=== PATIENT | female | born 1950 | race Caucasian/White ===

== ENCOUNTER → 2019-10-27 | Outpatient (CLI) | payer MEDICARE | LOC: M LABSMTC 13:42 | PROVIDERS: ATTEND Family Medicine | DX: Z11.59 Encounter for screening for other viral diseases (principal) | CPT/HCPCS: C9803; U0003 ==

== ENCOUNTER → 2020-05-20 | Outpatient (CLI) | payer SELFPAY | LOC: M LABSMTC 14:16 | PROVIDERS: ATTEND Pediatrics | DX: Z20.828 Contact with and (suspected) exposure to other viral communicable diseases (principal) ==

== ENCOUNTER 2020-08-25 06:02 | Emergency (ER) | payer MEDICARE, BC ==
[~2020-08-25] VITALS: Ht 177.8 cm; Wt 113.4 kg
[2020-08-25] MEDS ORDERED: SOTA160T PO (06:24)
[2020-08-25] MEDS ORDERED: GLUC1TAB58 PO (06:24)
[2020-08-25] MEDS ORDERED: FISH1000 PO (06:24)
[2020-08-25] MEDS ORDERED: CENTCHW3 PO (06:24)
[2020-08-25] MEDS ORDERED: ELIQ5TAB PO (06:24)
[2020-08-25] MEDS ORDERED: CBD OIL PO (06:24)
[2020-08-25] MEDS ORDERED: ACET650T15 PO (06:24)
[2020-08-25] MEDS ORDERED: NAPR-849 PO (06:24)
[2020-08-25] MEDS ORDERED: TORS20TA2 PO (06:24)
[2020-08-25] MEDS ORDERED: LEVO100T54 PO (06:24)
[2020-08-25] MEDS ORDERED: CALC1TAB42 PO (06:24)
[2020-08-25] MEDS ORDERED: NS 500 ML IV ONE (06:25)
[2020-08-25] MEDS ORDERED: ASPIRIN 81 MG CHEW TABLET PO ONE (06:25)
[2020-08-25 06:49] LABS: BASO # 0.1 10^3/uL (0.0-0.2); EOS # 0.3 10^3/uL (0.0-0.5); EOS % 5.3 % (0.0-3.0); HEMATOCRIT 40.2 % (36.0-47.0); LYMPH # 1.3 10^3/uL (1.5-5.0); LYMPH % 25.3 % (24.0-44.0); MEAN CORPUSCULAR HEMOGLOBIN 32.4 pg (27.0-33.0); MEAN CORPUSCULAR HGB CONC 32.3 g/dl (32.0-36.5); MEAN CORPUSCULAR VOLUME 100.2 fl (80.0-96.0); MONO # 0.6 10^3/uL (0.0-0.8); MONO % 11.2 % (2.0-8.0); NEUTROPHILS # 2.9 10^3/uL (1.5-8.5); PLATELET COUNT, AUTOMATED 176 10^3/uL (150-450); RED BLOOD COUNT 4.01 10^6/uL (4.00-5.40); WHITE BLOOD COUNT 5.1 10^3/uL (4.0-10.0)
[2020-08-25 07:21] LABS: ALT/SGPT 30 U/L (12-78); BILIRUBIN,DIRECT 0.1 MG/DL (0.0-0.2); BILIRUBIN,TOTAL 0.5 MG/DL (0.2-1.0); BLOOD UREA NITROGEN 16 MG/DL (7-18); CALCIUM LEVEL 9.2 MG/DL (8.8-10.2); CARBON DIOXIDE LEVEL 28 MEQ/L (21-32); CHLORIDE LEVEL 107 MEQ/L (98-107); CPK CREATINE PHOSPHOKINASE 83 U/L (26-192); FREE T4 1.28 NG/DL (0.76-1.46); GLOMERULAR FILTRATION RATE > 60.0 (>39); GLUCOSE, FASTING 117 MG/DL (70-100); LIPASE 119 U/L (73-393); MB/CK RELATIVE INDEX 2.41 (< OR =4); NT-PRO BNP 800 PG/ML (<125); POTASSIUM SERUM 3.6 MEQ/L (3.5-5.1); SODIUM LEVEL 142 MEQ/L (136-145); TOTAL PROTEIN 7.2 GM/DL (6.4-8.2); TROPONIN I < 0.02 NG/ML (< 0.10)
--- NOTE | 2020-08-25 07:23 | REPVR ---
PROCEDURE INFORMATION: Exam: XR Chest Exam date and time: 08/25/2020 7:02 AM Age: 69 years old Clinical indication: Chest pain TECHNIQUE: Imaging protocol: XR of the chest Views: 1 view. COMPARISON: No relevant prior studies available. FINDINGS: Lungs: There is mild streaky bibasilar atelectasis. The lungs are otherwise clear. Pleural spaces: Unremarkable. No pleural effusion. No pneumothorax. Heart/Mediastinum: Unremarkable. No cardiomegaly. Vasculature: The aorta is mildly tortuous. Bones/joints: Degenerative changes involve the spine and shoulders. IMPRESSION: No evidence for acute pulmonary disease. Electronically signed by: Kahlil Mills On 08/25/2020 07:23:25 AM
[2020-08-25] MEDS ORDERED: NS 1,000 ML IV SCH (08:11)
[2020-08-25] MEDS ORDERED: propofoL 200 MG/20 ML VIAL As Ordered ONE (08:19)
[2020-08-25] MEDS: propofoL 200 MG/20 ML VIAL IV PRN ×3 (08:40→08:44)
--- NOTE | 2020-08-25 09:48 | ECGEPIP ---
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
--- NOTE | 2020-08-25 09:50 | ECGEPIP ---
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
[2020-08-25 09:58] VITALS: BP 155/73
== END 2020-08-25 10:01 | disposition home or self-care (01) ==
LOC: M ED 06:02
DX: I48.91 Unspecified atrial fibrillation (principal); I10 Essential (primary) hypertension; G47.33 Obstructive sleep apnea (adult) (pediatric); M48.00 Spinal stenosis, site unspecified; Z79.01 Long term (current) use of anticoagulants; Z79.899 Other long term (current) drug therapy

== ENCOUNTER → 2021-08-06 | Outpatient (CLI) | payer MEDICARE, BC ==
[~2021-08-06] MED LIST: ACET650T15 PO; CALC1TAB42 PO; CBD OIL PO; CENTCHW3 PO; ELIQ5TAB PO; FISH1000 PO; GLUC1TAB58 PO; LEVO100T54 PO; NAPR-849 PO; SOTA160T PO; TORS20TA2 PO
[2021-08-06 13:07] LABS: BASO % 0.8 % (0.0-1.0); EOS # 0.1 10^3/uL (0.0-0.5); HEMATOCRIT 37.6 % (36.0-47.0); LYMPH # 0.9 10^3/uL (1.5-5.0); MEAN CORPUSCULAR HEMOGLOBIN 32.7 pg (27.0-33.0); MEAN CORPUSCULAR HGB CONC 31.9 g/dl (32.0-36.5); MEAN CORPUSCULAR VOLUME 102.5 fl (80.0-96.0); MONO # 0.5 10^3/uL (0.0-0.8); NEUTROPHILS # 2.1 10^3/uL (1.5-8.5); NEUTROPHILS % 56.9 % (36.0-66.0); PLATELET COUNT, AUTOMATED 173 10^3/uL (150-450); RED BLOOD COUNT 3.67 10^6/uL (4.00-5.40); WHITE BLOOD COUNT 3.6 10^3/uL (4.0-10.0)
== END ==
LOC: M WUC 08:51
DX: D72.810 Lymphocytopenia (principal)

== ENCOUNTER → 2021-09-16 | Outpatient (CLI) | payer MEDICARE, BC ==
[2021-09-16 10:34] LABS: BLOOD UREA NITROGEN 24 MG/DL (7-18); CALCIUM LEVEL 9.6 MG/DL (8.8-10.2); CARBON DIOXIDE LEVEL 33 MEQ/L (21-32); CHLORIDE LEVEL 108 MEQ/L (98-107); CREATININE FOR GFR 0.97 MG/DL (0.55-1.30); GLOMERULAR FILTRATION RATE > 60.0 (>39); GLUCOSE, FASTING 96 MG/DL (70-100); POTASSIUM SERUM 3.5 MEQ/L (3.5-5.1); SODIUM LEVEL 145 MEQ/L (136-145)
== END ==
LOC: M EKG 08:20
DX: I48.19 Other persistent atrial fibrillation (principal)

== ENCOUNTER 2022-01-01 07:04 | Emergency (ER) | payer MEDICARE, BC ==
[~2022-01-01] VITALS: Ht 177.8 cm; Wt 97.8 kg
[2022-01-01 07:56] LABS: BASO % 0.6 % (0.0-1.0); EOS # 0.1 10^3/uL (0.0-0.5); EOS % 2.2 % (0.0-3.0); HEMATOCRIT 38.4 % (36.0-47.0); HEMOGLOBIN 12.7 g/dl (12.0-15.5); LYMPH % 19.4 % (24.0-44.0); MEAN CORPUSCULAR HEMOGLOBIN 33.2 pg (27.0-33.0); MEAN CORPUSCULAR HGB CONC 33.1 g/dl (32.0-36.5); MEAN CORPUSCULAR VOLUME 100.5 fl (80.0-96.0); MONO # 0.5 10^3/uL (0.0-0.8); MONO % 10.5 % (2.0-8.0); NEUTROPHILS # 3.4 10^3/uL (1.5-8.5); NEUTROPHILS % 67.1 % (36.0-66.0); PLATELET COUNT, AUTOMATED 183 10^3/uL (150-450); RED BLOOD COUNT 3.82 10^6/uL (4.00-5.40); WHITE BLOOD COUNT 5.1 10^3/uL (4.0-10.0)
[2022-01-01] MEDS ORDERED: NS 500 ML IV ONE (08:00)
[2022-01-01] MEDS ORDERED: NS 1,000 ML IV SCH (08:00)
[2022-01-01 08:22] LABS: CK-MB VALUE MASS 1.2 NG/ML (<3.6); MB/CK RELATIVE INDEX 1.45 (< OR =4)
[2022-01-01 08:29] LABS: ALBUMIN 3.7 GM/DL (3.2-5.2); BILIRUBIN,DIRECT 0.1 MG/DL (0.0-0.2); BILIRUBIN,TOTAL 0.6 MG/DL (0.2-1.0); CALCIUM LEVEL 9.5 MG/DL (8.8-10.2); CREATININE FOR GFR 1.15 MG/DL (0.55-1.30); GLOMERULAR FILTRATION RATE 49.2 (>39); POTASSIUM SERUM 3.7 MEQ/L (3.5-5.1); THYROID STIMULATING HORMONE 0.746 uIU/ML (0.358-3.740); TOTAL PROTEIN 6.9 GM/DL (6.4-8.2)
[2022-01-01] MEDS: propofoL 200 MG/20 ML VIAL IV.PROC PRN ×4 (08:54→08:58)
[2022-01-01] MEDS ORDERED: ONDANSETRON 4MG 2ML VIAL IV ONE (09:10)
[2022-01-01 09:39] LABS: CK-MB VALUE MASS 1.1 NG/ML (<3.6); MB/CK RELATIVE INDEX 1.43 (< OR =4)
[2022-01-01 10:30] VITALS: BP 132/82
== END 2022-01-01 10:55 | disposition home or self-care (01) ==
LOC: M ED 07:04
DX: I48.91 Unspecified atrial fibrillation (principal); I25.2 Old myocardial infarction; I10 Essential (primary) hypertension; E03.9 Hypothyroidism, unspecified; E78.5 Hyperlipidemia, unspecified; Z79.899 Other long term (current) drug therapy; Z79.01 Long term (current) use of anticoagulants

== ENCOUNTER → 2022-01-07 | Outpatient (CLI) | payer MEDICARE, BC ==
[2022-01-07 10:26] LABS: HEMATOCRIT 36.4 % (36.0-47.0); HEMOGLOBIN 11.6 g/dl (12.0-15.5); MEAN CORPUSCULAR HEMOGLOBIN 32.4 pg (27.0-33.0); MEAN CORPUSCULAR HGB CONC 31.9 g/dl (32.0-36.5); MEAN CORPUSCULAR VOLUME 101.7 fl (80.0-96.0); PLATELET COUNT, AUTOMATED 180 10^3/uL (150-450); RED BLOOD COUNT 3.58 10^6/uL (4.00-5.40); WHITE BLOOD COUNT 3.6 10^3/uL (4.0-10.0)
== END ==
LOC: M WUC 08:12
DX: D64.9 Anemia, unspecified (principal)

== ENCOUNTER → 2022-08-31 | Outpatient (CLI) | payer MEDICARE, BC ==
[2022-08-31 13:58] LABS: HEMATOCRIT 35.1 % (36.0-47.0); HEMOGLOBIN 11.4 g/dl (12.0-15.5); MEAN CORPUSCULAR HEMOGLOBIN 33.5 pg (27.0-33.0); MEAN CORPUSCULAR HGB CONC 32.5 g/dl (32.0-36.5); MEAN CORPUSCULAR VOLUME 103.2 fl (80.0-96.0); PLATELET COUNT, AUTOMATED 165 10^3/uL (150-450); WHITE BLOOD COUNT 3.7 10^3/uL (4.0-10.0)
[2022-08-31 14:13] LABS: THYROID STIMULATING HORMONE 1.762 uIU/ML (0.55-4.78)
[2022-08-31 14:14] LABS: FREE T4 1.39 NG/DL (0.89-1.76); TOTAL 25(OH) VITAMIN D 90.1 NG/ML (20.0-100.0)
[2022-08-31 14:15] LABS: ALBUMIN 3.6 G/DL (3.2-5.2); BILIRUBIN,TOTAL 0.7 MG/DL (0.3-1.2); CALCIUM LEVEL 9.1 MG/DL (8.3-10.6); CHOLESTEROL RISK RATIO 2.05 (<5); CREATININE FOR GFR 1.03 MG/DL (0.55-1.30); GLOMERULAR FILTRATION RATE 55.9 (>39); HDL CHOLESTEROL 87.9 MG/DL (>40); LDL CHOLESTEROL 81.3 MG/DL (<100); NON-HDL-C 93.1 MG/DL; POTASSIUM SERUM 4.1 MMOL/L (3.5-5.1); TOTAL PROTEIN 6.3 G/DL (5.7-8.2)
== END ==
LOC: M WUC 09:00
PROVIDERS: ATTEND Family Medicine
DX: R73.9 Hyperglycemia, unspecified (principal); I48.0 Paroxysmal atrial fibrillation; E55.9 Vitamin D deficiency, unspecified; E03.9 Hypothyroidism, unspecified; Z79.899 Other long term (current) drug therapy

== ENCOUNTER → 2022-09-02 | Outpatient (CLI) | payer MEDICARE, BC | LOC: M WHC 14:33 | PROVIDERS: ATTEND Family Medicine | DX: Z12.31 Encounter for screening mammogram for malignant neoplasm of breast (principal); Z13.820 Encounter for screening for osteoporosis; M85.851 Other specified disorders of bone density and structure, right thigh; M85.852 Other specified disorders of bone density and structure, left thigh ==

== ENCOUNTER → 2022-10-08 | Outpatient (CLI) | payer MEDICARE, BC | LOC: M EKG 14:13 | DX: I48.19 Other persistent atrial fibrillation (principal); Z51.81 Encounter for therapeutic drug level monitoring; Z79.899 Other long term (current) drug therapy ==

== ENCOUNTER 2023-03-18 13:28 | Emergency (ER) | payer MEDICARE, BC ==
[~2023-03-18] VITALS: Ht 175.3 cm; Wt 87.7 kg
[2023-03-18 13:28] VITALS: TEMP 98.8
[2023-03-18 14:19] LABS: HEMATOCRIT 33.5 % (36.0-47.0); HEMOGLOBIN 11.2 g/dl (12.0-15.5); MEAN CORPUSCULAR HEMOGLOBIN 33.7 pg (27.0-33.0); MEAN CORPUSCULAR HGB CONC 33.4 g/dl (32.0-36.5); MEAN CORPUSCULAR VOLUME 100.9 fl (80.0-96.0); PLATELET COUNT, AUTOMATED 150 10^3/uL (150-450); RED BLOOD COUNT 3.32 10^6/uL (4.00-5.40); WHITE BLOOD COUNT 4.6 10^3/uL (4.0-10.0)
[2023-03-18] MEDS ORDERED: LOSA25TA13 PO (14:20)
[2023-03-18 14:59] LABS: FREE T4 1.42 NG/DL (0.89-1.76); THYROID STIMULATING HORMONE 1.203 uIU/ML (0.55-4.78)
[2023-03-18 15:02] LABS: CREATININE FOR GFR 1.17 MG/DL (0.55-1.30); GLOMERULAR FILTRATION RATE 48.1 (>39); POTASSIUM SERUM 3.9 MMOL/L (3.5-5.1)
[2023-03-18 15:13] LABS: MAGNESIUM LEVEL 2.1 MG/DL (1.8-2.4)
[2023-03-18] MEDS ORDERED: propofoL 200 MG/20 ML VIAL IV.PROC PRN (16:15)
[2023-03-18] MEDS ORDERED: NS 1,000 ML IV SCH (16:15)
[2023-03-18 17:25] VITALS: O2SAT 98
[2023-03-18 17:30] VITALS: BP 139/85
== END 2023-03-18 17:58 | disposition home or self-care (01) ==
LOC: M ED 13:28
DX: I48.0 Paroxysmal atrial fibrillation (principal); I49.3 Ventricular premature depolarization; I25.2 Old myocardial infarction; I10 Essential (primary) hypertension; E78.5 Hyperlipidemia, unspecified; G47.33 Obstructive sleep apnea (adult) (pediatric); Z86.79 Personal history of other diseases of the circulatory system; Z79.01 Long term (current) use of anticoagulants; Z79.810 Long term (current) use of selective estrogen receptor modulators (SERMs); Z79.811 Long term (current) use of aromatase inhibitors; Z79.899 Other long term (current) drug therapy

== ENCOUNTER → 2023-04-23 | Outpatient (CLI) | payer MEDICARE, BC ==
[~2023-04-23] MED LIST changes: +LOSA25TA13 PO
[2023-04-23 11:20] LABS: BASO % 0.8 % (0.0-1.0); EOS # 0.1 10^3/uL (0.0-0.5); EOS % 3.4 % (0.0-3.0); LYMPH # 0.9 10^3/uL (1.5-5.0); LYMPH % 24.1 % (24.0-44.0); MEAN CORPUSCULAR HEMOGLOBIN 33.3 pg (27.0-33.0); MEAN CORPUSCULAR HGB CONC 32.4 g/dl (32.0-36.5); MONO # 0.5 10^3/uL (0.0-0.8); MONO % 11.9 % (2.0-8.0); NEUTROPHILS # 2.3 10^3/uL (1.5-8.5); NEUTROPHILS % 59.5 % (36.0-66.0); PLATELET COUNT, AUTOMATED 172 10^3/uL (150-450); WHITE BLOOD COUNT 3.8 10^3/uL (4.0-10.0)
[2023-04-23 11:36] LABS: HEMOGLOBIN A1c 5.1 % (4.0-6.0)
[2023-04-23 11:54] LABS: ALBUMIN 3.6 G/DL (3.2-5.2); BILIRUBIN,TOTAL 0.6 MG/DL (0.3-1.2); CALCIUM LEVEL 9.3 MG/DL (8.3-10.6); CHOLESTEROL RISK RATIO 2.27 (<5); CREATININE FOR GFR 1.05 MG/DL (0.55-1.30); GLOMERULAR FILTRATION RATE 54.5 (>39); HDL CHOLESTEROL 93.2 MG/DL (>40); LDL CHOLESTEROL 108.2 MG/DL (<100); NON-HDL-C 118.8 MG/DL; POTASSIUM SERUM 3.6 MMOL/L (3.5-5.1); TOTAL PROTEIN 6.5 G/DL (5.7-8.2)
[2023-04-23 11:56] LABS: FREE T4 1.19 NG/DL (0.89-1.76)
[2023-04-23 11:57] LABS: THYROID STIMULATING HORMONE 2.384 uIU/ML (0.55-4.78)
== END ==
LOC: M WUC 08:20
PROVIDERS: ATTEND Registered Nurse
DX: I10 Essential (primary) hypertension (principal); Z00.00 Encounter for general adult medical examination without abnormal findings; E03.9 Hypothyroidism, unspecified; Z79.899 Other long term (current) drug therapy

== ENCOUNTER → 2023-11-16 | Outpatient (CLI) | payer MEDICARE, BC | LOC: M WHC 12:39 | PROVIDERS: ATTEND Registered Nurse | DX: Z12.31 Encounter for screening mammogram for malignant neoplasm of breast (principal) ==

== ENCOUNTER → 2023-12-06 | Outpatient (CLI) | payer MEDICARE, BC ==
[2023-12-06 10:35] LABS: BASO % 0.8 % (0.0-1.0); EOS # 0.1 10^3/uL (0.0-0.5); EOS % 2.7 % (0.0-3.0); HEMATOCRIT 33.7 % (36.0-47.0); HEMOGLOBIN 10.9 g/dl (12.0-15.5); LYMPH # 1.1 10^3/uL (1.5-5.0); LYMPH % 29.7 % (24.0-44.0); MEAN CORPUSCULAR HGB CONC 32.3 g/dl (32.0-36.5); MEAN CORPUSCULAR VOLUME 102.1 fl (80.0-96.0); MONO # 0.5 10^3/uL (0.0-0.8); MONO % 14.7 % (2.0-8.0); NEUTROPHILS # 1.9 10^3/uL (1.5-8.5); NEUTROPHILS % 51.8 % (36.0-66.0); PLATELET COUNT, AUTOMATED 149 10^3/uL (150-450); WHITE BLOOD COUNT 3.7 10^3/uL (4.0-10.0)
[2023-12-06 10:58] LABS: ALBUMIN 3.6 G/DL (3.2-5.2); BILIRUBIN,TOTAL 0.7 MG/DL (0.3-1.2); CALCIUM LEVEL 9.5 MG/DL (8.3-10.6); CHOLESTEROL RISK RATIO 2.3 (<5); CREATININE FOR GFR 1.16 MG/DL (0.55-1.30); GLOMERULAR FILTRATION RATE 48.5 (>39); HDL CHOLESTEROL 78.8 MG/DL (>40); LDL CHOLESTEROL 92.6 MG/DL (<100); NON-HDL-C 103.2 MG/DL; POTASSIUM SERUM 4.1 MMOL/L (3.5-5.1); TOTAL PROTEIN 6.1 G/DL (5.7-8.2)
[2023-12-06 10:59] LABS: THYROID STIMULATING HORMONE 0.729 uIU/ML (0.55-4.78)
[2023-12-06 11:00] LABS: FREE T4 1.51 NG/DL (0.89-1.76)
== END ==
LOC: M WUC 08:46
PROVIDERS: ATTEND Registered Nurse
DX: E03.9 Hypothyroidism, unspecified (principal); I10 Essential (primary) hypertension

== ENCOUNTER → 2024-03-20 | Outpatient (CLI) | payer MEDICARE, BC | LOC: M WUC 14:52 | PROVIDERS: ATTEND Registered Nurse | DX: S05.91XA Unspecified injury of right eye and orbit, initial encounter (principal); X58.XXXA Exposure to other specified factors, initial encounter; Y92.9 Unspecified place or not applicable ==

== ENCOUNTER 2024-05-23 06:55 | Emergency (ER) | payer MEDICARE, BC ==
[~2024-05-23] VITALS: Ht 175.3 cm; Wt 95.5 kg
[2024-05-23 07:53] LABS: BASO % 0.1 % (0.0-1.0); EOS # 0.1 10^3/uL (0.0-0.5); EOS % 0.7 % (0.0-3.0); HEMATOCRIT 37.8 % (36.0-47.0); HEMOGLOBIN 12.4 g/dl (12.0-15.5); LYMPH # 0.3 10^3/uL (1.5-5.0); LYMPH % 3.9 % (24.0-44.0); MEAN CORPUSCULAR HEMOGLOBIN 33.1 pg (27.0-33.0); MEAN CORPUSCULAR HGB CONC 32.8 g/dl (32.0-36.5); MEAN CORPUSCULAR VOLUME 100.8 fl (80.0-96.0); MONO # 0.5 10^3/uL (0.0-0.8); MONO % 7.2 % (2.0-8.0); NEUTROPHILS % 87.2 % (36.0-66.0); PLATELET COUNT, AUTOMATED 156 10^3/uL (150-450); RED BLOOD COUNT 3.75 10^6/uL (4.00-5.40); WHITE BLOOD COUNT 6.9 10^3/uL (4.0-10.0)
[2024-05-23 08:08] LABS: CK-MB VALUE MASS < 1.0 NG/ML (<3.6)
[2024-05-23 08:11] LABS: THYROID STIMULATING HORMONE 1.211 uIU/ML (0.55-4.78)
[2024-05-23] MEDS: METOCLOPRAMIDE INJ 10MG/2ML VIAL IV ONE (08:11)
[2024-05-23 08:13] LABS: BLOOD UREA NITROGEN 32 MG/DL (9-23); CALCIUM LEVEL 10.2 MG/DL (8.3-10.6); CARBON DIOXIDE LEVEL 31 MMOL/L (20-31); CHLORIDE LEVEL 106 MMOL/L (98-107); FREE T4 1.53 NG/DL (0.89-1.76); GLOMERULAR FILTRATION RATE 51.5 (>39); GLUCOSE, FASTING 121 MG/DL (74-106); MAGNESIUM LEVEL 2.1 MG/DL (1.8-2.4); POTASSIUM SERUM 3.7 MMOL/L (3.5-5.1); SODIUM LEVEL 145 MMOL/L (136-145)
[2024-05-23 08:17] LABS: CPK CREATINE PHOSPHOKINASE 68 U/L (34-145); MB/CK RELATIVE INDEX 1.47 (< OR =4)
[2024-05-23] MEDS ORDERED: FISH100015 PO (09:14)
[2024-05-23] MEDS ORDERED: HOME MED LIST COMPLETE! XX SCH (09:15)
[2024-05-23] MEDS: APIXABAN 5 MG TAB (ELIQUIS) PO ONE (09:21)
[2024-05-23 09:22] VITALS: BP 147/94
[2024-05-23] MEDS: SOTALOL HCL 80 MG TAB PO ONE (09:22)
[2024-05-23] MEDS: NS 1,000 ML IV SCH (13:17)
[2024-05-23] MEDS: propofoL 200 MG/20 ML VIAL IV.PROC PRN (13:27)
[2024-05-23] MEDS ORDERED: REGL10TA6 PO (15:16)
[2024-05-23 15:30] VITALS: BP 138/80; TEMP 98; O2SAT 97
== END 2024-05-23 15:35 | disposition home or self-care (01) ==
LOC: M ED 06:55
DX: K52.9 Noninfective gastroenteritis and colitis, unspecified (principal); I48.91 Unspecified atrial fibrillation; I44.4 Left anterior fascicular block; I10 Essential (primary) hypertension; E78.5 Hyperlipidemia, unspecified; G47.33 Obstructive sleep apnea (adult) (pediatric); Z86.79 Personal history of other diseases of the circulatory system; Z79.01 Long term (current) use of anticoagulants; Z79.811 Long term (current) use of aromatase inhibitors; Z79.899 Other long term (current) drug therapy
CPT/HCPCS: 71045; 80048; 82550; 82553; 83735; 84439; 84443; 84484; 85025; 87486; 87581; 87633; 87798; 92960; 93005; 93041; 94760; 96374; 99285; J2765

== ENCOUNTER → 2024-07-17 | Outpatient (CLI) | payer MEDICARE, BC ==
[~2024-07-17] MED LIST changes: +FISH100015 PO; +REGL10TA6 PO
[2024-07-17 11:37] LABS: BASO % 0.7 % (0.0-1.0); EOS # 0.1 10^3/uL (0.0-0.5); EOS % 1.7 % (0.0-3.0); HEMATOCRIT 33.9 % (36.0-47.0); HEMOGLOBIN 11.2 g/dl (12.0-15.5); LYMPH % 24.6 % (24.0-44.0); MONO # 0.5 10^3/uL (0.0-0.8); MONO % 12.4 % (2.0-8.0); NEUTROPHILS # 2.4 10^3/uL (1.5-8.5); NEUTROPHILS % 60.6 % (36.0-66.0); PLATELET COUNT, AUTOMATED 160 10^3/uL (150-450); RED BLOOD COUNT 3.29 10^6/uL (4.00-5.40)
[2024-07-17 11:56] LABS: ALBUMIN 3.5 G/DL (3.2-5.2); BILIRUBIN,TOTAL 0.7 MG/DL (0.3-1.2); CALCIUM LEVEL 9.9 MG/DL (8.3-10.6); CREATININE FOR GFR 1.03 MG/DL (0.55-1.30); GLOMERULAR FILTRATION RATE 55.6 (>39); POTASSIUM SERUM 4.1 MMOL/L (3.5-5.1); THYROID STIMULATING HORMONE 0.962 uIU/ML (0.55-4.78); TOTAL PROTEIN 6.7 G/DL (5.7-8.2)
[2024-07-17 11:57] LABS: FREE T4 1.42 NG/DL (0.89-1.76)
== END ==
LOC: M WUC 08:53
PROVIDERS: ATTEND Registered Nurse
DX: E03.9 Hypothyroidism, unspecified (principal)

== ENCOUNTER 2025-01-06 07:40 | Inpatient (IN) | payer MEDICARE, BC ==
[~2025-01-06] VITALS: Ht 177.8 cm; Wt 87.5 kg
[~2025-01-06 07:40] MED LIST changes: +ACET-1515 PO; -ACET650T15 PO; -CBD OIL PO; +CBD OIL TOP; -FISH100015 PO; +FISH100019 PO
[2025-01-06 08:37] LABS: BASO # 0.0 10^3/uL (0.0-0.2); BASO % 0.6 % (0.0-1.0); EOS # 0.1 10^3/uL (0.0-0.5); EOS % 1.8 % (0.0-3.0); LYMPH # 1.0 10^3/uL (1.5-5.0); LYMPH % 20.1 % (24.0-44.0); MONO # 0.6 10^3/uL (0.0-0.8); MONO % 12.3 % (2.0-8.0); NEUTROPHILS # 3.2 10^3/uL (1.5-8.5); NEUTROPHILS % 64.8 % (36.0-66.0); PLATELET COUNT, AUTOMATED 148 10^3/uL (150-450)
[2025-01-06 09:12] LABS: ALT/SGPT 28.0 U/L (7.0-40); AST/SGOT 29.0 U/L (<34); CALCIUM LEVEL 10.4 MG/DL (8.3-10.6); CARBON DIOXIDE LEVEL 29.0 MMOL/L (20-31); CHLORIDE LEVEL 103.0 MMOL/L (98-107); CK-MB VALUE MASS 1.2 NG/ML (<3.6); CPK CREATINE PHOSPHOKINASE 79.0 U/L (34-145); CREATININE FOR GFR 1.6 MG/DL (0.55-1.30); GLOMERULAR FILTRATION RATE 33.2 (>39); MB/CK RELATIVE INDEX 1.51 (< OR =4); POTASSIUM SERUM 3.8 MMOL/L (3.5-5.1); SODIUM LEVEL 142.0 MMOL/L (136-145)
[2025-01-06 09:19] LABS: INR 1.12
[2025-01-06 10:31] LABS: FREE T4 1.65 NG/DL (0.89-1.76)
[2025-01-06] MEDS ORDERED: GLUCTAB64 PO (11:23)
[2025-01-06] MEDS ORDERED: NAPR220C23 PO (11:23)
[2025-01-06] MEDS ORDERED: HOME MED LIST COMPLETE! XX SCH (11:25)
[2025-01-06 12:03] LABS: MAGNESIUM LEVEL 2.3 MG/DL (1.8-2.4)
[2025-01-06] MEDS ORDERED: ACETAMINOPHEN 325 MG TAB PO PRN (12:45)
[2025-01-06] MEDS: NS (Normal Saline) 0.9% 1,000 ML IV SCH (13:00)
[2025-01-06] MEDS ORDERED: hydrALAZINE 20 MG/ML 1 ML VIAL IV PRN (13:10)
[2025-01-06 14:30] VITALS: BP 134/99; TEMP 96.9; O2SAT 98
[2025-01-06 15:47] VITALS: BP 160/94; TEMP 97.9; O2SAT 97
[2025-01-06] MEDS ORDERED: ATORVASTATIN 20 MG TAB PO SCH (17:20)
[2025-01-06] MEDS: ASPIRIN 81 MG CHEWABLE TABLET PO ONE (18:11)
[2025-01-06 19:06] VITALS: BP 155/80; TEMP 97.4; O2SAT 99
[2025-01-06 19:27] LABS: CHOLESTEROL LEVEL 198.0 MG/DL (<200); CHOLESTEROL RISK RATIO 2.45 (<5); LDL CHOLESTEROL 100.0 MG/DL (<100); NON-HDL-C 117.4 MG/DL; TRIGLYCERIDES LEVEL 87.0 MG/DL (<150)
[2025-01-06 20:53] LABS: ESTIMATED AVERAGE GLUCOSE 108.0 MG/DL (60-110)
[2025-01-06] MEDS ORDERED: SOTALOL HCL 80 MG TAB PO SCH ×2 (21:00)
[2025-01-06] MEDS ORDERED: APIXABAN 5 MG TAB PO SCH (21:00)
[2025-01-06 21:36] VITALS: BP 169/57; O2SAT 100
[2025-01-06] MEDS: ATORVASTATIN 20 MG TAB PO SCH (21:37)
[2025-01-06] MEDS: CALCIUM/VITAMIN D 500 MG TAB PO SCH (21:38)
[2025-01-06] MEDS: MULTIVITAMINS/MINERALS THERAP 1 TAB PO SCH (21:38)
[2025-01-06] MEDS: DOCUSATE SODIUM 100 MG CAPSULE PO SCH (21:38)
[2025-01-06] MEDS: SOTALOL HCL 80 MG TAB PO SCH (21:38)
[2025-01-06 23:04] VITALS: BP 163/78; TEMP 97.6; O2SAT 97
[2025-01-07] VITALS (8 sets, daily range): BP systolic 130–185; BP diastolic 81–92; TEMP 97.1–97.9; O2SAT 97–99
[2025-01-07 05:21] LABS: PLATELET COUNT, AUTOMATED 143 10^3/uL (150-450)
[2025-01-07] MEDS: LEVOTHYROXINE 100 MCG TABLET (0.1 MG) PO SCH (05:36)
[2025-01-07 05:50] LABS: ALT/SGPT 25.0 U/L (7.0-40); AST/SGOT 27.0 U/L (<34); CALCIUM LEVEL 10.2 MG/DL (8.3-10.6); CARBON DIOXIDE LEVEL 27.0 MMOL/L (20-31); CHLORIDE LEVEL 108.0 MMOL/L (98-107); CREATININE FOR GFR 1.3 MG/DL (0.55-1.30); GLOMERULAR FILTRATION RATE 42.6 (>39); MAGNESIUM LEVEL 2.2 MG/DL (1.8-2.4); POTASSIUM SERUM 3.4 MMOL/L (3.5-5.1); SODIUM LEVEL 146.0 MMOL/L (136-145)
[2025-01-07] MEDS: POTASSIUM CHLORIDE 10MEQ SR TABLET PO ONE (06:58)
[2025-01-07] MEDS ORDERED: ASPIRIN 81 MG ENTERIC TABLET PO SCH (09:00)
[2025-01-07] MEDS ORDERED: RIVAROXABAN 10MG TAB PO SCH (18:00)
[2025-01-07] MEDS ORDERED: PILL CUTTER 1 EACH XX PRN (18:15)
[2025-01-07] MEDS: RIVAROXABAN 10MG TAB PO SCH (18:23)
[2025-01-08] VITALS (7 sets, daily range): BP systolic 158–182; BP diastolic 78–110; TEMP 97.4–98.2; O2SAT 97–98
[2025-01-08 08:32] LABS: BASO # 0.0 10^3/uL (0.0-0.2); BASO % 0.7 % (0.0-1.0); EOS # 0.1 10^3/uL (0.0-0.5); EOS % 2.2 % (0.0-3.0); LYMPH # 0.9 10^3/uL (1.5-5.0); LYMPH % 20.8 % (24.0-44.0); MONO # 0.4 10^3/uL (0.0-0.8); MONO % 10.4 % (2.0-8.0); NEUTROPHILS # 2.7 10^3/uL (1.5-8.5); NEUTROPHILS % 65.4 % (36.0-66.0); PLATELET COUNT, AUTOMATED 155 10^3/uL (150-450)
[2025-01-08] MEDS ORDERED: OMEGA-3 1000 MG CAPSULE PO SCH (09:00)
[2025-01-08 09:09] LABS: ALT/SGPT 24.0 U/L (7.0-40); AST/SGOT 27.0 U/L (<34); CALCIUM LEVEL 9.8 MG/DL (8.3-10.6); CARBON DIOXIDE LEVEL 28.0 MMOL/L (20-31); CHLORIDE LEVEL 106.0 MMOL/L (98-107); CREATININE FOR GFR 1.15 MG/DL (0.55-1.30); GLOMERULAR FILTRATION RATE 49.4 (>39); MAGNESIUM LEVEL 2.0 MG/DL (1.8-2.4); POTASSIUM SERUM 3.7 MMOL/L (3.5-5.1); SODIUM LEVEL 144.0 MMOL/L (136-145)
[2025-01-08] MEDS ORDERED: XARE15TA PO (09:50)
[2025-01-08] MEDS ORDERED: XARE20TA PO (09:51)
[2025-01-08] MEDS: amLODIPine 5 MG TAB PO SCH (10:44)
[2025-01-08] MEDS: hydrALAZINE 20 MG/ML 1 ML VIAL IV PRN (13:46)
[2025-01-08] MEDS: RIVAROXABAN 20MG TAB PO SCH (16:44)
[2025-01-08] MEDS: FLUTICASONE PROPIONATE 0.05% NASAL SPRAY 16 GM NARES SCH (22:40)
[2025-01-09] VITALS (13 sets, daily range): BP systolic 133–188; BP diastolic 81–107; TEMP 97–98.5; O2SAT 96–99
[2025-01-09] MEDS: hydrALAZINE 20 MG/ML 1 ML VIAL IV STA (04:40)
[2025-01-09 05:12] LABS: BASO # 0.0 10^3/uL (0.0-0.2); BASO % 0.5 % (0.0-1.0); EOS # 0.1 10^3/uL (0.0-0.5); EOS % 1.3 % (0.0-3.0); LYMPH # 1.0 10^3/uL (1.5-5.0); LYMPH % 17.4 % (24.0-44.0); MONO # 0.7 10^3/uL (0.0-0.8); MONO % 11.9 % (2.0-8.0); NEUTROPHILS # 3.7 10^3/uL (1.5-8.5); NEUTROPHILS % 67.6 % (36.0-66.0); PLATELET COUNT, AUTOMATED 144 10^3/uL (150-450)
[2025-01-09 05:38] LABS: CALCIUM LEVEL 10.3 MG/DL (8.3-10.6); CARBON DIOXIDE LEVEL 24.0 MMOL/L (20-31); CHLORIDE LEVEL 108.0 MMOL/L (98-107); CREATININE FOR GFR 1.06 MG/DL (0.55-1.30); GLOMERULAR FILTRATION RATE 54.4 (>39); MAGNESIUM LEVEL 1.9 MG/DL (1.8-2.4); POTASSIUM SERUM 3.5 MMOL/L (3.5-5.1); SODIUM LEVEL 145.0 MMOL/L (136-145)
[2025-01-09] MEDS ORDERED: ONDANSETRON 4MG 2ML VIAL IV ONE (05:55)
[2025-01-09] MEDS: METOPROLOL TART 25 MG TABLET PO STA (07:30)
[2025-01-09] MEDS: ONDANSETRON 4MG 2ML VIAL IV ONE (10:52)
[2025-01-09] MEDS: MAG SULF 1GM/100ML (MAG RUN) 1 GM in IV 1 EA IV ONE (11:27)
[2025-01-09] MEDS: KCL 40MEQ in NS 1000ML 1,000 ML IV SCH (11:27)
[2025-01-09] MEDS ORDERED: LIDOCAINE 2% 100 MG/5 ML SDV (FOR ANES.) As Ordered ONE (16:32)
[2025-01-09] MEDS ORDERED: ONDANSETRON 4MG 2ML VIAL As Ordered ONE (16:42)
[2025-01-09] MEDS: CETACAINE SPRAY 5 GM As Ordered ONE (17:18)
[2025-01-09] MEDS ORDERED: PHENYLephrine 500MCG 5ML (100MCG/ML) SYRINGE As Ordered ONE (17:28)
[2025-01-10 03:46] VITALS: BP 118/79; TEMP 97.9; O2SAT 96
[2025-01-10 05:31] LABS: BASO # 0.0 10^3/uL (0.0-0.2); BASO % 0.3 % (0.0-1.0); EOS # 0.1 10^3/uL (0.0-0.5); EOS % 0.8 % (0.0-3.0); LYMPH # 1.2 10^3/uL (1.5-5.0); LYMPH % 19.7 % (24.0-44.0); MONO # 0.8 10^3/uL (0.0-0.8); MONO % 12.2 % (2.0-8.0); NEUTROPHILS # 4.1 10^3/uL (1.5-8.5); NEUTROPHILS % 65.4 % (36.0-66.0); PLATELET COUNT, AUTOMATED 147 10^3/uL (150-450)
[2025-01-10 05:58] LABS: CALCIUM LEVEL 9.7 MG/DL (8.3-10.6); CARBON DIOXIDE LEVEL 24.0 MMOL/L (20-31); CHLORIDE LEVEL 111.0 MMOL/L (98-107); CREATININE FOR GFR 1.29 MG/DL (0.55-1.30); GLOMERULAR FILTRATION RATE 43.0 (>39); MAGNESIUM LEVEL 2.1 MG/DL (1.8-2.4); POTASSIUM SERUM 4.5 MMOL/L (3.5-5.1); SODIUM LEVEL 145.0 MMOL/L (136-145)
[2025-01-10 07:38] VITALS: BP 125/78; TEMP 98.1; O2SAT 94
[2025-01-10 08:07] VITALS: BP 128/90
[2025-01-10] MEDS ORDERED: AMLO25TA PO (10:30)
[2025-01-10] MEDS ORDERED: ATOR80TA59 PO (10:30)
[2025-01-10] MEDS ORDERED: ASPI81CH33 PO (10:40)
== END 2025-01-10 12:30 | disposition home or self-care (01) | DRG 65 ==
LOC: M ED 07:40 → M ED INP 12:33 → M PCU 14:09
PROVIDERS: ADMIT Internal Medicine; ATTEND Internal Medicine
PROC: B245ZZ4 Ultrasonography of Left Heart, Transesophageal (ICD-10-PCS; principal; 2025-01-09 17:00)
DX: I63.9 Cerebral infarction, unspecified (principal); N17.9 Acute kidney failure, unspecified; Q21.10 Atrial septal defect, unspecified; N18.31 Chronic kidney disease, stage 3a; I12.9 Hypertensive chronic kidney disease with stage 1 through stage 4 chronic kidney disease, or unspecified chronic kidney disease; E03.9 Hypothyroidism, unspecified; D69.6 Thrombocytopenia, unspecified; D64.9 Anemia, unspecified; I48.0 Paroxysmal atrial fibrillation; E78.5 Hyperlipidemia, unspecified; M48.00 Spinal stenosis, site unspecified; R26.9 Unspecified abnormalities of gait and mobility; G62.9 Polyneuropathy, unspecified; G47.33 Obstructive sleep apnea (adult) (pediatric); E87.6 Hypokalemia; R53.1 Weakness; R42 Dizziness and giddiness; R00.1 Bradycardia, unspecified; E86.0 Dehydration; E83.42 Hypomagnesemia; I35.8 Other nonrheumatic aortic valve disorders; Z79.890 Hormone replacement therapy; Z79.899 Other long term (current) drug therapy

== ENCOUNTER → 2025-01-15 | Outpatient (CLI) | payer MEDICARE, BC ==
[~2025-01-15] MED LIST changes: +AMLO25TA PO; +ASPI81CH33 PO; +ATOR80TA59 PO; +GLUCTAB64 PO; +NAPR220C23 PO; +XARE15TA PO; +XARE20TA PO
[2025-01-15 14:13] LABS: BASO # 0.0 10^3/uL (0.0-0.2); BASO % 0.5 % (0.0-1.0); EOS # 0.1 10^3/uL (0.0-0.5); EOS % 1.1 % (0.0-3.0); LYMPH # 1.3 10^3/uL (1.5-5.0); LYMPH % 23.5 % (24.0-44.0); MONO # 0.8 10^3/uL (0.0-0.8); MONO % 14.5 % (2.0-8.0); NEUTROPHILS # 3.4 10^3/uL (1.5-8.5); NEUTROPHILS % 59.9 % (36.0-66.0); PLATELET COUNT, AUTOMATED 190 10^3/uL (150-450)
[2025-01-15 14:46] LABS: ALT/SGPT 22.0 U/L (7.0-40); AST/SGOT 20.0 U/L (<34); CALCIUM LEVEL 10.4 MG/DL (8.3-10.6); CARBON DIOXIDE LEVEL 30.0 MMOL/L (20-31); CHLORIDE LEVEL 104.0 MMOL/L (98-107); CREATININE FOR GFR 1.48 MG/DL (0.55-1.30); GLOMERULAR FILTRATION RATE 36.5 (>39); IRON (FE) 78.0 UG/DL (50-170); PERCENT SATURATION 25.8 % (13.2-45.0); POTASSIUM SERUM 4.1 MMOL/L (3.5-5.1); SODIUM LEVEL 145.0 MMOL/L (136-145)
[2025-01-15 14:52] LABS: FREE T4 1.63 NG/DL (0.89-1.76)
[2025-01-15 14:54] LABS: THYROID PEROXIDASE ANTIBODY 31.0 U/ML (<60.0)
== END ==
LOC: M WUC 11:06
PROVIDERS: ATTEND Registered Nurse
DX: N17.9 Acute kidney failure, unspecified (principal); D64.9 Anemia, unspecified; E03.9 Hypothyroidism, unspecified

== ENCOUNTER → 2025-03-16 | Outpatient (CLI) | payer MEDICARE, BC ==
[2025-03-16 15:02] LABS: BASO # 0.0 10^3/uL (0.0-0.2); BASO % 0.7 % (0.0-1.0); EOS # 0.1 10^3/uL (0.0-0.5); EOS % 2.5 % (0.0-3.0); LYMPH # 0.9 10^3/uL (1.5-5.0); LYMPH % 21.2 % (24.0-44.0); MONO # 0.6 10^3/uL (0.0-0.8); MONO % 12.7 % (2.0-8.0); NEUTROPHILS # 2.7 10^3/uL (1.5-8.5); NEUTROPHILS % 62.7 % (36.0-66.0); PLATELET COUNT, AUTOMATED 161 10^3/uL (150-450)
[2025-03-16 15:05] LABS: ALT/SGPT 69 U/L (7.0-40); AST/SGOT 45 U/L (<34); CALCIUM LEVEL 9.8 MG/DL (8.3-10.6); CARBON DIOXIDE LEVEL 29 MMOL/L (20-31); CHLORIDE LEVEL 103 MMOL/L (98-107); CREATININE FOR GFR 1.25 MG/DL (0.55-1.30); GLOMERULAR FILTRATION RATE 44.7 (>39); IRON (FE) 77 UG/DL (50-170); PERCENT SATURATION 24.1 % (13.2-45.0); POTASSIUM SERUM 4.1 MMOL/L (3.5-5.1); SODIUM LEVEL 142 MMOL/L (136-145)
[2025-03-16 15:06] LABS: VITAMIN B12 LEVEL 1257 PG/ML (211-911)
== END ==
LOC: M WUC 11:53
PROVIDERS: ATTEND Registered Nurse
DX: D64.9 Anemia, unspecified (principal)

== ENCOUNTER 2025-04-06 14:48 | Emergency (ER) | payer MEDICARE, BC ==
[~2025-04-06] VITALS: Ht 175.3 cm; Wt 96.9 kg
[2025-04-06 14:51] VITALS: BP 119/78; TEMP 96.9; O2SAT 97
== END 2025-04-06 17:00 | disposition left against medical advice (07) ==
LOC: M ED 14:48
DX: Z53.21 Procedure and treatment not carried out due to patient leaving prior to being seen by health care provider (principal)

== ENCOUNTER → 2025-04-26 | Outpatient (CLI) | payer MEDICARE, BC ==
[2025-04-26 13:06] LABS: IRON (FE) 86 UG/DL (50-170); PERCENT SATURATION 27.2 % (13.2-45.0)
[2025-04-26 13:07] LABS: ALT/SGPT 40 U/L (7.0-40); AST/SGOT 40 U/L (<34); CALCIUM LEVEL 9.7 MG/DL (8.3-10.6); CARBON DIOXIDE LEVEL 30 MMOL/L (20-31); CHLORIDE LEVEL 106 MMOL/L (98-107); CHOLESTEROL LEVEL 138 MG/DL (<200); CHOLESTEROL RISK RATIO 1.63 (<5); CREATININE FOR GFR 1.14 MG/DL (0.55-1.30); GLOMERULAR FILTRATION RATE 49.9 (>39); LDL CHOLESTEROL 42.2 MG/DL (<100); NON-HDL-C 53.4 MG/DL; POTASSIUM SERUM 4.0 MMOL/L (3.5-5.1); SODIUM LEVEL 143 MMOL/L (136-145); TRIGLYCERIDES LEVEL 56 MG/DL (<150)
[2025-04-26 13:09] LABS: BASO # 0.0 10^3/uL (0.0-0.2); BASO % 0.7 % (0.0-1.0); EOS # 0.1 10^3/uL (0.0-0.5); EOS % 2.7 % (0.0-3.0); LYMPH # 0.8 10^3/uL (1.5-5.0); LYMPH % 16.6 % (24.0-44.0); MONO # 0.7 10^3/uL (0.0-0.8); MONO % 14.4 % (2.0-8.0); NEUTROPHILS # 3.0 10^3/uL (1.5-8.5); NEUTROPHILS % 65.4 % (36.0-66.0); PLATELET COUNT, AUTOMATED 183 10^3/uL (150-450)
[2025-04-26 13:11] LABS: FREE T4 1.46 NG/DL (0.89-1.76)
[2025-04-26 13:49] LABS: HEPATITIS C VIRUS ABY INDEX < 0.02 INDEX (<0.8)
== END ==
LOC: M WUC 09:42
PROVIDERS: ATTEND Registered Nurse
DX: R94.5 Abnormal results of liver function studies (principal); E03.9 Hypothyroidism, unspecified; I63.9 Cerebral infarction, unspecified; Z79.899 Other long term (current) drug therapy; D64.9 Anemia, unspecified; R53.1 Weakness